=== PATIENT | male | born 1995 | race Caucasian/White ===

== ENCOUNTER 2016-11-17 23:28 | Emergency (ER) | payer OTHER ==
[~2016-11-17] VITALS: Ht 180.3 cm; Wt 91.0 kg
[~2016-11-17 23:28] MED LIST: HUMALOG SQ; LANTUSP SQ
--- NOTE | 2016-11-17 23:57 | PD ---
HPI Chief Complaint: Psychiatric Symptoms Time Seen by Provider: 23:44 Travel History International Travel<30 days: No Contact w/Intl Traveler<30days: No Traveled to known affect area: No History of Present Illness HPI 31-year-old male was brought in from local custodial Center for psychiatric evaluation. Patient was Patino acted. Patient made statements to custodial service personnel that he refused to eat and due to his condition would cause serious body harm to himself. Patient also made threatening comments to harm custodial personnel. Patient states that he has history of diabetes however refused blood tests or answering any more questions from me. PFSH Past Medical History Asthma: No Blood Disorders: No Heart Rhythm Problems: No Cardiovascular Problems: No Chest Pain: No Cystic Fibrosis: No Developmental Delay: No Diabetes: Yes Patient Takes Glucophage: No Diminished Hearing: No Headaches: No Hypertension: No Neurologic: No Respiratory: No Immunizations Current: Yes Migraines: No Seizures: No Sickle Cell Disease: No Sleep Apnea: No Influenza Vaccination: No Past Surgical History Abdominal Surgery: No Appendectomy: No Cardiac Surgery: No Cholecystectomy: No Ear Surgery: No Endocrine Surgery: No Eye Surgery: No Genitourinary Surgery: No Gynecologic Surgery: No Neurologic Surgery: No Oral Surgery: No Thoracic Surgery: No Other Surgery: Yes (BB REMOVED FROM HAND) Social History Alcohol Use: No Tobacco Use: Yes Substance Use: No Allergies-Medications (Allergen,Severity, Reaction): Coded Allergies: Shellfish (Verified Allergy, Intermediate, Rash, 11/17/16) Reported Meds & Prescriptions Reported Meds & Active Scripts Active Review of Systems ROS Limitations: Uncooperative, Refused Physical Exam Narrative GENERAL: Well-nourished, well-developed patient. SKIN: Warm and dry. HEAD: Normocephalic. EYES: No scleral icterus. No injection or drainage. NECK: Supple, trachea midline. No JVD or lymphadenopathy. CARDIOVASCULAR: Regular rate and rhythm without murmurs, gallops, or rubs. RESPIRATORY: Breath sounds equal bilaterally. No accessory muscle use. GASTROINTESTINAL: Abdomen soft, non-tender, nondistended. MUSCULOSKELETAL: No cyanosis, or edema. BACK: Nontender without obvious deformity. No CVA tenderness. Neurologic exam normal. Data Data Orders Complete Blood Count With Diff (11/17/16 23:47) Comprehensive Metabolic Panel (11/17/16 23:47) Drug Screen, Random Urine (11/17/16 23:47) Psych Screen (11/17/16 23:47) MDM Medical Decision Making Medical Screen Exam Complete: Yes Emergency Medical Condition: Yes Differential Diagnosis Differential diagnosis including adjustment disorder, personality disorder, suicidal. Narrative Course 21-year-old male was Patino acted for making statement to harm himself and other people. Patient is at custodial center. Patient refused blood work. Patient is medically cleared for psychiatric evaluation and disposition. Genaro Kahn MD Nov 17, 2016 23:57
[2016-11-18 07:30] VITALS: BP 137/76; PULSE 69; RESP 17; O2SAT 97
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
[2016-11-18 12:00] VITALS: BP 143/66; PULSE 71; RESP 19; O2SAT 97
== END 2016-11-18 12:34 ==
LOC: NEPA 23:28
DX: F43.20 Adjustment disorder, unspecified (principal); F60.2 Antisocial personality disorder; R45.851 Suicidal ideations; E11.9 Type 2 diabetes mellitus without complications; Z87.891 Personal history of nicotine dependence
CPT/HCPCS: 99283

== ENCOUNTER 2017-02-03 12:44 | Emergency (ER) | payer OTHER ==
[~2017-02-03] VITALS: Ht 172.7 cm; Wt 86.0 kg
--- NOTE | 2017-02-03 13:07 | PD ---
HPI Chief Complaint: psychiatric evaluation Time Seen by Provider: 13:03 Travel History International Travel<30 days: No Contact w/Intl Traveler<30days: No History of Present Illness HPI Patient comes in under police escort under Patino act for psychiatric evaluation. Patient brought in from [facility] after being medically cleared there after injecting large amount of insulin to himself 4 days ago. Patient was reportedly discharged from [facility] back in police custody and was then subsequentially brought to the emergency department here. Per railroad police officer he was instructed to bring patient here by his superior and has been under police custody the entire time. Patient denies any medical concerns currently. Patient denies any chest pain, shortness breath, fever, nausea, vomiting, abdominal pain. PFSH Past Medical History Asthma: No Blood Disorders: No Heart Rhythm Problems: No Cardiovascular Problems: No Chest Pain: No Cystic Fibrosis: No Developmental Delay: No Diabetes: Yes Diminished Hearing: No Headaches: No Hypertension: No Neurologic: No Respiratory: No Immunizations Current: Yes Migraines: No Seizures: No Sickle Cell Disease: No Sleep Apnea: No Past Surgical History Abdominal Surgery: No Appendectomy: No Cardiac Surgery: No Cholecystectomy: No Ear Surgery: No Endocrine Surgery: No Eye Surgery: No Genitourinary Surgery: No Gynecologic Surgery: No Neurologic Surgery: No Oral Surgery: No Thoracic Surgery: No Other Surgery: Yes (BB REMOVED FROM HAND) Social History Alcohol Use: No Tobacco Use: Yes Substance Use: Yes Allergies-Medications (Allergen,Severity, Reaction): Coded Allergies: Shellfish (Verified Allergy, Intermediate, Rash, 11/17/16) Reported Meds & Prescriptions Reported Meds & Active Scripts Active Review of Systems Except as stated in HPI: all other systems reviewed are Neg Physical Exam Narrative GENERAL: Well-developed, well nourished, in no acute distress, and non-ill appearing. SKIN: Focused skin assessment warm and dry. HEAD: Atraumatic. Normocephalic. EYES: Pupils equal and round. EOMI. No scleral icterus. No injection or drainage. ENT: No nasal bleeding or discharge. Mucous membranes pink and moist. NECK: Trachea midline. No JVD. Supple. No nuclear rigidity. CARDIOVASCULAR: Regular rate and rhythm. No murmur appreciated. RESPIRATORY: No accessory muscle use. No respiratory distress. Clear to auscultation. Breath sounds equal bilaterally. MUSCULOSKELETAL: No obvious deformities. No clubbing. No cyanosis. No edema. Full range of motion. NEUROLOGICAL: Awake and alert. No obvious cranial nerve deficits. Motor grossly within normal limits. Normal speech. PSYCHIATRIC: Appropriate mood and affect; insight and judgment normal. Data Data Last Documented VS Vital Signs Date Time Temp Pulse Resp B/P Pulse Ox O2 Delivery O2 Flow Rate FiO2 02/03/17 13:18 98.2 74 14 125/81 97 Room Air Orders Psych Screen (02/03/17 12:55) MDM Medical Decision Making Medical Screen Exam Complete: Yes Emergency Medical Condition: Yes Differential Diagnosis Homicidal, suicidal, other Narrative Course Patient was seen and examined. Patient medically cleared for further treatment and evaluation by psych. Final disposition per psych. Diagnosis Primary Impression: Medical clearance for psychiatric admission Condition: Stable Martin Awan Feb 03, 2017 13:07 Martin Awan Feb 03, 2017 13:07
[2017-02-03 13:18] VITALS: BP 125/81; PULSE 74; RESP 14; TEMP 98.2; O2SAT 97
--- NOTE | 2017-02-03 14:01 | PD ---
History of Present Illness Chief Complaint: Psychiatric Symptoms Time Seen by Provider: 13:30 Travel History International Travel<30 Days: No Contact w/Intl Traveler<30days: No Known affected area: No Legal Status Legal Status: Patino Act Patino Act Signed By: [place] History of Present Illness: 21-year-old male brought in under a Patino act that was completed today by [facility]'s Department. Apparently patient overdosed on insula and while residing in [facility], 4 days ago. (Patient handed his syringe and vial of insulan 2 inject himself and he george up 90-100 units and injected in his arm.) He spent last 4 days as an inpatient at [facility]. Upon discharge today, he was Patino acted to this facility. Patient interviewed by this physician. He faces multiple serious charges and tells this physician he may be incarcerated for 5 years. He is currently on disciplinary restriction and has not had contact with his family for approximately 80 days. He is very disappointed with the manner in which he is being treated at [facility] and wants to be transferred to [facility] or he will continue to overdose on insulin. While this physician believes the patient is being highly manipulative and possibly antisocial, a recommendation was given to him recommending they consider a transfer to [facility] where the patient has had what he believes to be better care for his diabetes. This physician of course understands that this recommendation may be ignored by [facility] law enforcement and that I have no authority at that institution. Finally, patient is only wanting to kill himself if he does not get his way. Therefore, this physician feels it is inappropriate and counter therapeutic to admit him for psychiatric treatment. His Patino act is therefore being lifted. PFSH Past Medical History Asthma: No Blood Disorders: No Heart Rhythm Problems: No Cardiovascular Problems: No Chest Pain: No Cystic Fibrosis: No Developmental Delay: No Diabetes: Yes Patient Takes Glucophage: No Diminished Hearing: No Headaches: No Hypertension: No Neurologic: No Respiratory: No Immunizations Current: Yes Migraines: No Seizures: No Sickle Cell Disease: No Sleep Apnea: No Tetanus Vaccination: > 5 Years Influenza Vaccination: No Past Surgical History Abdominal Surgery: No Appendectomy: No Cardiac Surgery: No Cholecystectomy: No Ear Surgery: No Endocrine Surgery: No Eye Surgery: No Genitourinary Surgery: No Gynecologic Surgery: No Neurologic Surgery: No Oral Surgery: No Thoracic Surgery: No Other Surgery: Yes (BB REMOVED FROM HAND) Psychiatric History Psychiatric History Hx Psychiatric Treatment: Denies any History of Inpatient Treatment: No Social History Patient not residing at home at this time so possession of a gun is not relevant at this time. Hx Alcohol Use: No Hx Tobacco Use: No Hx Substance Use: Yes Substance Use Type: Marijuana, Amphetamines-Stimulants, Other Hx of Substance Use Treatment: No Allergies-Medications (Allergen,Severity, Reaction): Coded Allergies: Shellfish (Verified Allergy, Intermediate, Rash, 11/17/16) Reported Meds & Prescriptions Reported Meds & Active Scripts Active Review of Systems ROS Limitations: Clinical Condition Exam Exam Limitations: Clinical Condition Alert: Yes Avis: Person, Place, Date, Situation Mood: Calm Affect: Appropriate Speech: Clear Eye Contact: Normal Memory Intact: Immediate, Recent, Remote Suicidal: Ideation Insight/Judgement Impaired but adequate. Patient's cognition is intact and felt to be baseline. While this physician disagrees with the patient's choices, they are not the result of a significant mental illness. [facility] Medical Decision Making Medical Record Reviewed: Yes Assessment/Plan Patient's Patino act Is being lifted and he is being released to the law enforcement officers to return to [facility]. Patient is being given a letter recommending transfer to [facility] in order to appease the patient. Orders Psych Screen (02/03/17 12:55) Results Vital Signs Date Time Temp Pulse Resp B/P Pulse Ox O2 Delivery O2 Flow Rate FiO2 02/03/17 13:18 98.2 74 14 125/81 97 Room Air Diagnosis Primary Impression: Medical clearance for psychiatric admission Additional Impressions: Adjustment disorder with mixed disturbance of emotions and conduct Adjustment disorder Condition: Stable Problem Qualifiers Sarabjit Leos MD Feb 03, 2017 14:01
== END 2017-02-03 14:50 ==
LOC: NEPC 12:44
DX: F43.25 Adjustment disorder with mixed disturbance of emotions and conduct (principal); E11.9 Type 2 diabetes mellitus without complications; Z79.4 Long term (current) use of insulin; Z72.0 Tobacco use; T38.3X1A Poisoning by insulin and oral hypoglycemic [antidiabetic] drugs, accidental (unintentional), initial encounter
CPT/HCPCS: 99284

== ENCOUNTER 2017-02-04 22:27 | Emergency (ER) | payer OTHER ==
[~2017-02-04] VITALS: Ht 180.3 cm; Wt 90.0 kg
[2017-02-04 22:45] VITALS: BP 118/64; PULSE 111; RESP 18; TEMP 99; O2SAT 95
[2017-02-05 01:26] LABS: AUTOMATED NEUTROPHIL # 12.5 TH/MM3 (1.8-7.7); BASOPHIL % 0.3 % (0.0-2.0); HEMO FLAGS DIFF FINAL; LYMPH % 5.5 % (9.0-44.0); LYMPHOCYTE # 0.8 TH/MM3 (1.0-4.8); MEAN CELL VOLUME 91.5 FL (80.0-100.0); MEAN CORPUSCULAR HEMOGLOBIN 30.3 PG (27.0-34.0); MEAN CORPUSCULAR HGB CONC 33.2 % (32.0-36.0); MONO % 7.4 % (0.0-8.0); NEUT % 86.8 % (16.0-70.0); PLATELET COUNT 227 TH/MM3 (150-450); RED BLOOD COUNT 5.36 MIL/MM3 (4.50-5.90); RED CELL DISTRIBUTION WIDTH 13.4 % (11.6-17.2); WHITE BLOOD COUNT 14.4 TH/MM3 (4.0-11.0)
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
[2017-02-05] MEDS ORDERED: INSULIN ASPART 1,000 UNITS/10 ML VIAL SQ ONE ×2 (01:45→05:00)
[2017-02-05 01:52] LABS: ALKALINE PHOSPHATASE 96 U/L (45-117); ALT (GPT) 26 U/L (12-78); ANION GAP 16 MEQ/L (5-15); AST (GOT) 11 U/L (15-37); BICARBONATE 20.8 MEQ/L (21.0-32.0); BLOOD UREA NITROGEN 26 MG/DL (7-18); CHLORIDE 96 MEQ/L (98-107); GLOMERULAR FILTRATION RATE 61 ML/MIN (>89); POTASSIUM 4.4 MEQ/L (3.5-5.1); SODIUM (NA) 133 MEQ/L (136-145); TOTAL BILIRUBIN ADULT 1.1 MG/DL (0.2-1.0)
[2017-02-05 01:53] LABS: ACETAMINOPHEN LESS THAN 2.0 MCG/ML (10.0-30.0)
[2017-02-05] MEDS ORDERED: SODIUM CHLOR 0.9% 1000 ML INJ 1,000 ML IV ONE ×2 (02:15)
[2017-02-05 04:00] VITALS: BP 121/67; PULSE 93; RESP 16; O2SAT 96
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
== END 2017-02-05 08:04 ==
LOC: NEDAMB 22:27 → NEPB 02-05 08:04
DX: E11.65 Type 2 diabetes mellitus with hyperglycemia (principal); F60.2 Antisocial personality disorder; F32.9 Major depressive disorder, single episode, unspecified; Z79.4 Long term (current) use of insulin
CPT/HCPCS: 80053; 80307; 85025; 96372; 99283; J1815